=== PATIENT | male | born 1935 | race Caucasian/White ===

== ENCOUNTER 2017-03-28 06:55 | Day surgery (SDC) | payer MEDICARE, BC ==
[2017-03-25 12:38] LABS: BASOPHILS % (AUTO) 0.6 % (0-1); EOSINOPHILS # (AUTO) 0.2 X10'3 (0-0.9); EOSINOPHILS % (AUTO) 3.6 % (0-6); LYMPHOCYTES # (AUTO) 1.7 X10'3 (1.1-4.8); LYMPHOCYTES % (AUTO) 25.8 % (21-51); MEAN CORPUSCULAR HEMOGLOBIN 32.4 PG (27.0-31.0); MEAN CORPUSCULAR HGB CONC 33.7 % (33.0-36.5); MEAN CORPUSCULAR VOLUME 96.3 FL (78-98); MEAN PLATELET VOLUME 6.2 FL (7.4-10.4); MONOCYTES # (AUTO) 0.5 X10'3 (0-0.9); MONOCYTES % (AUTO) 8.1 % (2-12); NEUTROPHILS # (AUTO) 4.1 X10'3 (1.8-7.7); NEUTROPHILS % (AUTO) 61.9 % (42-75); PRE OP HEMATOCRIT 38.5 % (42.0-52.0); PRE OP HEMOGLOBIN 12.9 g/dL (14.0-17.9); PRE OP PLATELET COUNT 207 X10'3 (140-440); RED BLOOD COUNT 3.99 X10'6 (4.70-6.10); RED CELL DISTRIBUTION WIDTH 15.5 % (11.5-14.5)
[2017-03-25 12:49] LABS: PRE OP PROTIME 10.4 SECONDS (9.0-12.0)
[2017-03-25 12:55] LABS: ALBUMIN 3.9 G/DL (3.4-5.0); ALKALINE PHOSPHATASE 60 IU/L (46-116); BLOOD UREA NITROGEN 43 MG/DL (7-18); BUN/CREATININE RATIO 26.5 (5.4-32.0); CHLORIDE 102 MMOL/L (99-107); CREATININE 1.62 MG/DL (0.60-1.10); PRE OP ALT 41 U/L (30-65); PRE OP ANION GAP 10 (8-16); PRE OP AST 30 U/L (10-37); PRE OP BILIRUB, TOTAL 0.6 MG/DL (0.0-1.0); PRE OP GLUCOSE 106 MG/DL (70-104); PRE OP POTASSIUM 3.9 MMOL/L (3.4-5.1); PRE OP SODIUM 137 MMOL/L (135-145); TOTAL CARBON DIOXIDE 25.4 MMOL/L (24-32); TOTAL PROTEIN 7.7 G/DL (6.4-8.2); eGFR 41 ML/MIN
[~2017-03-28] VITALS: Ht 177.8 cm; Wt 117.9 kg
[2017-03-28] VITALS (7 sets, daily range): BP systolic 125–144; BP diastolic 63–79
[~2017-03-28 06:55] MED LIST: CETI10TA14 PO; CETI10TA15 PO; CLOP75TA4 PO; DOCUMENT DATE & TIME OF BETA-BLOCKER PO ONE; FINA5TAB11 PO; HYDR25TA4 PO; LABE300T PO; LISI40TA4 PO; MIRA25TA PO; MIRA50TA PO; POTA20TA10 PO; [UNRECOGNIZED DRUG - CODE] PO; [UNRECOGNIZED DRUG - CODE] PO; ceFAZolin 2gm in dextrose, iso 50 ML IV ONE; famotidine 20mg tablet PO ONE; ringers solution, lacted 1,000 ML IV SCH
[2017-03-28] MEDS ORDERED: BUPIVAcaine/PF 2.5 mg/ml (0.25%) 30ml vial ONE (07:35)
[2017-03-28] MEDS ORDERED: LIDOcaine 0.5% (5mg/ml) 50ml vial ONE (09:26)
[2017-03-28] MEDS ORDERED: fentaNYL/PF 50MCG/1 ML 2ML syringe ONE (09:27)
[2017-03-28] MEDS ORDERED: midazolam 2 mg/2 ml injection ONE (09:27)
[2017-03-28] MEDS ORDERED: propofol inj 20 ML IV ONE (09:41)
[2017-03-28] MEDS ORDERED: ringers solution, lacted 1,000 ML IV SCH (10:13)
[2017-03-28] MEDS ORDERED: proCHLORperazine 10 MG/2 ml inj IV PRN (10:15)
[2017-03-28] MEDS ORDERED: meperidine/PF 25mg/ml syringe IV PRN ×3 (10:15)
[2017-03-28] MEDS ORDERED: ondansetron/PF 4mg/2ml inj IV PRN (10:15)
== END 2017-03-28 10:55 | disposition home or self-care (01) ==
LOC: PAS 06:55
PROVIDERS: ATTEND Orthopaedic Surgery Hand Surgery
DX: M67.431 Ganglion, right wrist (principal); M65.88 Other synovitis and tenosynovitis, other site; M19.031 Primary osteoarthritis, right wrist; I10 Essential (primary) hypertension; M10.9 Gout, unspecified; Z96.651 Presence of right artificial knee joint; Z86.73 Personal history of transient ischemic attack (TIA), and cerebral infarction without residual deficits; Z79.01 Long term (current) use of anticoagulants; Z79.899 Other long term (current) drug therapy
CPT/HCPCS: 25111; 25115; 36415; 80053; 85025; 85610; 85730; 93005; A6222; A6449; J0690; J2001; J2250; J2704; J3010; J3490; J7120; A7000